=== PATIENT | female | born 1955 | race Caucasian/White ===

== ENCOUNTER 2024-01-11 08:15 | Outpatient (RCR) | payer MEDICARE, OTHER, SELFPAY ==
--- NOTE | 2023-11-18 18:04 | PT.OIE ---
Current Diagnoses Cervicalgia (11/16/23) Cystocele, unspecified (11/16/23) Pelvic muscle wasting (11/16/23) Other female genital prolapse (11/16/23) Past Surgical History (Last Reviewed 05/30/21 @ 16:29 by Faye Correa MD) H/O section Visit Care Team Role Provider Type ORIANA Oseguera Attending Provider Non-Staff Family Provider Primary Care Provider Referring Provider Specialty: Nursing Address: [facility] [address], [address], [place], [address] Email: Physical Therapy Initial Evaluation PT-OP-A Visit Information Start: 11/16/23 08:15 Freq: Status: Active Protocol: Document 11/16/23 09:03 [facility] (Rec: 11/16/23 09:17 [facility] [id number]) Out-Patient Physical Therapy Visit Information Visit Information Visit Type Initial Evaluation Visit Start Time 09:03 Visit Stop Time 09:45 Visit Number 1 Evaluation Information Evaluation Date 11/16/23 PT-OP-B Current Condition Start: 11/16/23 08:15 Freq: Status: Active Protocol: Document 11/16/23 09:03 [facility] (Rec: 11/18/23 17:56 [facility] [id number]) Current Condition History of Current Condition Onset Date March 2023 Current Complaints voiding difficulty and inability to fully empty the bladder History of Current Condition Mary reports that in March of 2023 she was under a lot of stress and she began noticing the it was taking longer for her to empty her bladder. Now she is presenting with hesitancy and inability to fully void. PT-OP-C Subjective Start: 11/16/23 08:15 Freq: Status: Active Protocol: Document 11/16/23 09:03 [facility] (Rec: 11/16/23 09:17 [facility] [id number]) OP-PT Subjective Patient Comments Patient Comments pt reports she feels it takes longer for her to empty her bladder, this started in March. She had a lot of stress going on. She has a history of bladder infections but she has been taking cranberry. She is also taking a estrogen cream and started taking that 4 years ago. She has occasional urgercency that she describes as the exception rather than the rule . SHe has bowel movement every day. 1 . PT-OP-I Pelvic Floor Start: 11/16/23 08:15 Freq: Status: Active Protocol: Document 11/16/23 09:03 [facility] (Rec: 11/18/23 17:56 [facility] [id number]) Pelvic Floor Assessment Urine Pelvic Floor Surgery No Urinary Symptoms Hesitancy,Incomplete Emptying Pelvic Clock Pelvic Clock 12-3 Atrophy Pelvic Clock 3-6 Atrophy Pelvic Clock 6-9 Atrophy Pelvic Clock 9-12 Atrophy Prolapse Cystocele Grade 2 Contraction Ability Voluntary Contraction Weak Voluntary Relaxation Weak Manual Muscle Testing Left 2 Manual Muscle Testing Right 2 Manual Muscle Testing Anterior 2 Manual Muscle Testing Posterior 3 Muscle Endurance (Seconds) 4 Comments Pelvic Floor Comments poor endurance of pelvic floor contractions PT-OP-Q Treatments Start: 11/16/23 08:15 Freq: Status: Active Protocol: Document 11/16/23 09:03 [facility] (Rec: 11/16/23 09:41 [facility] [id number]) Therapeutic Exercises Supine Exercises pelvic foor long holds Reps/Minutes 10 reps x 10 seconds Sidelying Exercises edwards shells Reps/Minutes 2-3 sets of 10 PT-OP-T Assessment and Plan Start: 11/16/23 08:15 Freq: Status: Active Protocol: Document 11/16/23 09:03 [facility] (Rec: 11/18/23 17:56 [facility] [id number]) Physical Therapy Assessment Rehab Potential Rehabilitation Potential Excellent Evaluation Complexity Number of Personal Factors/Comorbidities 0 Number of Body Systems Impaired 1-2 Clinical Presentation at Evaluation Stable Impairments Impairments Soft Tissue Mobility,Strength Other Impairments hesitancy to void and inablity to fully empty the bladder, cystocele Goals 3 Impairment cystocele with incomplete voiding and hesitancy to void Skilled Nursing Goal (LTG) With strengthening Mary reports a overall improvement in her voiding and she is able to feel as if she is completely voiding LTG Duration 8 weeks 2 Impairment Decreased pelvic floor strength Short Term Goal (STG) Mary is educated on a pelvic floor strengthening program STG Duration 4 weeks Quarry Supervisor Dimension Stone Goal (LTG) Mary is able to improve pelvic floor strength to 3/5 MMT or better for all guzman of the levator ani LTG Duration 8 weeks 1 Impairment Decreased pelvic floor endurance Short Term Goal (STG) Mary is able to sustain a pelvic floor contraction in Supine x 10 seconds STG Duration 4 weeks Quarry Supervisor Dimension Stone Goal (LTG) Mary is able to sustain a pelvic floor contraction in standing x 5 seconds LTG Duration 8 weeks Assessment Summary Assessment Mary is a 68 year old female who presents to PT today with chief complaints of difficulty emptying her bladder fully and hesitancy with voiding. She reports her symptoms began in March 2023 during a time that was stressfull for her. She seeks PT consult to help improve her ability to fully void. With exam today Mary is able to facilitate a contraction of all guzman of the levator ani however she is weak especially in the lateral guzman. She lacks endurance of the levator ani to sustain a pelvic floor contraction more than 4 seconds. Time was spent on education of pelvic floor anatomy and education of pelvic floor muscle training. Mary is a good candidate for pelvic floor PT to help support her bladder and improve her voiding ability Physical Therapy Plan Frequency and Duration Frequency of Treatment 1x/Week Duration of treatment (weeks) 8 Plan of Care Start Date 11/16/23 Plan of Care End Date 01/11/24 Therapeutic Interventions Therapeutic Interventions Home Exercise Program, Neuromuscular Re-education, Patient/Caregiver Education, Self-Care/Home Management, Therapeutic Exercises Modalities Biofeedback Next Visit Focus/Plan Next Note Type Treatment Note Next Visit Plan EMG biofeedback for pelvic floor endurance training
--- NOTE | 2023-11-18 18:04 | PT.OPPOC ---
Physical, Occupational & Speech Therapy At [facility] Current Diagnoses Cervicalgia (11/16/23) Cystocele, unspecified (11/16/23) Pelvic muscle wasting (11/16/23) Other female genital prolapse (11/16/23) Visit Care Team Role Provider Type ORIANA Oseguera Attending Provider Non-Staff Family Provider Primary Care Provider Referring Provider Specialty: Nursing Address: [facility] [address], [address], [place], [address] Email: Plan Of Care PT-OP-T Assessment and Plan Start: 11/16/23 08:15 Freq: Status: Active Protocol: Document 11/16/23 09:03 [facility] (Rec: 11/18/23 17:56 [facility] [id number]) Physical Therapy Assessment Rehab Potential Rehabilitation Potential Excellent Evaluation Complexity Number of Personal Factors/Comorbidities 0 Number of Body Systems Impaired 1-2 Clinical Presentation at Evaluation Stable Impairments Impairments Soft Tissue Mobility,Strength Other Impairments hesitancy to void and inablity to fully empty the bladder, cystocele Goals 3 Impairment cystocele with incomplete voiding and hesitancy to void Retirement Goal (LTG) With strengthening Mary reports a overall improvement in her voiding and she is able to feel as if she is completely voiding LTG Duration 8 weeks 2 Impairment Decreased pelvic floor strength Short Term Goal (STG) Mary is educated on a pelvic floor strengthening program STG Duration 4 weeks Sewing Trimmer Goal (LTG) Mary is able to improve pelvic floor strength to 3/5 MMT or better for all guzman of the levator ani LTG Duration 8 weeks 1 Impairment Decreased pelvic floor endurance Short Term Goal (STG) Mary is able to sustain a pelvic floor contraction in Supine x 10 seconds STG Duration 4 weeks Retirement Goal (LTG) aMry is able to sustain a pelvic floor contraction in standing x 5 seconds LTG Duration 8 weeks Assessment Summary Assessment Mary is a 68 year old female who presents to PT today with chief complaints of difficulty emptying her bladder fully and hesitancy with voiding. She reports her symptoms began in March 2023 during a time that was stressful for her. She seeks PT consult to help improve her ability to fully void. With exam today Mary is able to facilitate a contraction of all guzman of the levator ani however she is weak especially in the lateral guzman. She lacks endurance of the levator ani to sustain a pelvic floor contraction more than 4 seconds. Time was spent on education of pelvic floor anatomy and education of pelvic floor muscle training. Mary is a good candidate for pelvic floor PT to help support her bladder and improve her voiding ability Physical Therapy Plan Frequency and Duration Frequency of Treatment 1x/Week Duration of treatment (weeks) 8 Plan of Care Start Date 11/16/23 Plan of Care End Date 01/11/24 Therapeutic Interventions Therapeutic Interventions Home Exercise Program, Neuromuscular Re-education, Patient/Caregiver Education, Self-Care/Home Management, Therapeutic Exercises Modalities Biofeedback Next Visit Focus/Plan Next Note Type Treatment Note Next Visit Plan EMG biofeedback for pelvic floor endurance training Plan of Care Dates Plan of Care Start Date 11/16/23 Plan of Care End Date 01/11/24 Electronically Signed by: Selene Urrutia, PT 11/18/23 4255 If you are in agreement with this Plan of Care, please return a signed and dated copy. I have reviewed this Plan of Care and certify that the skilled therapy services above are required to meet the patient?s needs. Physician Signature Date Printed Name and Credentials Clinical Instructor Signature Printed Name and Credentials
--- NOTE | 2023-11-24 09:40 | PT.OTN ---
Current Diagnoses Cervicalgia (11/24/23) Cystocele, unspecified (11/24/23) Pelvic muscle wasting (11/24/23) Other female genital prolapse (11/24/23) Physical Therapy Treatment Note PT-OP-A Visit Information Start: 11/16/23 08:15 Freq: Status: Active Protocol: Document 11/24/23 09:02 [facility] (Rec: 11/24/23 09:29 [facility] [id number]) Out-Patient Physical Therapy Visit Information Visit Information Visit Type Treatment Note Visit Start Time 09:02 Visit Stop Time 09:35 Visit Number 2 PT-OP-B Current Condition Start: 11/16/23 08:15 Freq: Status: Active Protocol: Document 11/16/23 09:03 [facility] (Rec: 11/18/23 17:56 [facility] [id number]) Current Condition History of Current Condition Onset Date March 2023 Current Complaints voiding difficulty and inability to fully empty the bladder History of Current Condition Mary reports that in March of 2023 she was under a lot of stress and she began noticing the it was taking longer for her to empty her bladder. Now she is presenting with hesitancy and inability to fully void. PT-OP-C Subjective Start: 11/16/23 08:15 Freq: Status: Active Protocol: Document 11/24/23 09:02 [facility] (Rec: 11/24/23 09:36 [facility] [id number]) OP-PT Subjective Patient Comments Patient Comments pt reports she is working on her exercises at home Patient Reported Progress Same PT-OP-I Pelvic Floor Start: 11/16/23 08:15 Freq: Status: Active Protocol: Document 11/16/23 09:03 [facility] (Rec: 11/18/23 17:56 [facility] [id number]) Pelvic Floor Assessment Urine Pelvic Floor Surgery No Urinary Symptoms Hesitancy,Incomplete Emptying Pelvic Clock Pelvic Clock 12-3 Atrophy Pelvic Clock 3-6 Atrophy Pelvic Clock 6-9 Atrophy Pelvic Clock 9-12 Atrophy Prolapse Cystocele Grade 2 Contraction Ability Voluntary Contraction Weak Voluntary Relaxation Weak Manual Muscle Testing Left 2 Manual Muscle Testing Right 2 Manual Muscle Testing Anterior 2 Manual Muscle Testing Posterior 3 Muscle Endurance (Seconds) 4 Comments Pelvic Floor Comments poor endurance of pelvic floor contractions PT-OP-Q Treatments Start: 11/16/23 08:15 Freq: Status: Active Protocol: Document 11/24/23 09:02 [facility] (Rec: 11/24/23 09:29 [facility] [id number]) Therapeutic Exercises Supine Exercises pelvic floor quick flicks Reps/Minutes 2 sec on 2 sec off Comments 72 uv max pelvic foor long holds Supine Exercise Name with EMG biofeedback Reps/Minutes 10 reps x 10 seconds Comments 16.5 uv and max 49.8 uv Sidelying Exercises edwards shells Reps/Minutes 2-3 sets of 10 PT-OP-T Assessment and Plan Start: 11/16/23 08:15 Freq: Status: Active Protocol: Document 11/24/23 09:02 [facility] (Rec: 11/24/23 09:29 [facility] [id number]) Physical Therapy Assessment Goals 3 Impairment cystocele with incomplete voiding and hesitancy to void Destination Specialist Goal (LTG) With strengthening Mary reports a overall improvement in her voiding and she is able to feel as if she is completely voiding LTG Duration 8 weeks 2 Impairment Decreased pelvic floor strength Short Term Goal (STG) Mary is educated on a pelvic floor strengthening program STG Duration 4 weeks Destination Specialist Goal (LTG) Mary is able to improve pelvic floor strength to 3/5 MMT or better for all guzman of the levator ani LTG Duration 8 weeks 1 Impairment Decreased pelvic floor endurance Short Term Goal (STG) Mary is able to sustain a pelvic floor contraction in Supine x 10 seconds STG Duration 4 weeks [facility] Goal (LTG) Mary is able to sustain a pelvic floor contraction in standing x 5 seconds LTG Duration 8 weeks Assessment Summary Assessment EMG biofeedback was initiated today for Mary. She presents witha strong initial contraction of the pelvic floor but it is difficult for her to hold the contraction. Her chief complaint is a slow hesitant urinary stream and we discussed activation of the anterior and lateral guzman of the pelvic floor to help with this symptom Physical Therapy Plan Frequency and Duration Frequency of Treatment 1x/Week Duration of treatment (weeks) 8 Plan of Care Start Date 11/16/23 Plan of Care End Date 01/11/24 Therapeutic Interventions Therapeutic Interventions Home Exercise Program, Neuromuscular Re-education, Patient/Caregiver Education, Self-Care/Home Management, Therapeutic Exercises Modalities Biofeedback Next Visit Focus/Plan Next Note Type Treatment Note Next Visit Plan EMG biofeedback for pelvic floor endurance training
--- NOTE | 2023-11-30 08:57 | PT.OTN ---
Current Diagnoses Cervicalgia (11/30/23) Cystocele, unspecified (11/30/23) Pelvic muscle wasting (11/30/23) Other female genital prolapse (11/30/23) Physical Therapy Treatment Note PT-OP-A Visit Information Start: 11/16/23 08:15 Freq: Status: Active Protocol: Document 11/30/23 08:15 [facility] (Rec: 11/30/23 08:56 [facility] [id number]) Out-Patient Physical Therapy Visit Information Visit Information Visit Type Treatment Note Visit Start Time 08:16 Visit Stop Time 08:54 Visit Number 3 PT-OP-B Current Condition Start: 11/16/23 08:15 Freq: Status: Active Protocol: Document 11/16/23 09:03 [facility] (Rec: 11/18/23 17:56 [facility] [id number]) Current Condition History of Current Condition Onset Date March 2023 Current Complaints voiding difficulty and inability to fully empty the bladder History of Current Condition Mary reports that in March of 2023 she was under a lot of stress and she began noticing the it was taking longer for her to empty her bladder. Now she is presenting with hesitancy and inability to fully void. PT-OP-C Subjective Start: 11/16/23 08:15 Freq: Status: Active Protocol: Document 11/30/23 08:15 [facility] (Rec: 11/30/23 08:56 [facility] [id number]) OP-PT Subjective Patient Comments Patient Comments the kegels are going well, she is working is sidelying at home PT-OP-I Pelvic Floor Start: 11/16/23 08:15 Freq: Status: Active Protocol: Document 11/16/23 09:03 [facility] (Rec: 11/18/23 17:56 [facility] [id number]) Pelvic Floor Assessment Urine Pelvic Floor Surgery No Urinary Symptoms Hesitancy,Incomplete Emptying Pelvic Clock Pelvic Clock 12-3 Atrophy Pelvic Clock 3-6 Atrophy Pelvic Clock 6-9 Atrophy Pelvic Clock 9-12 Atrophy Prolapse Cystocele Grade 2 Contraction Ability Voluntary Contraction Weak Voluntary Relaxation Weak Manual Muscle Testing Left 2 Manual Muscle Testing Right 2 Manual Muscle Testing Anterior 2 Manual Muscle Testing Posterior 3 Muscle Endurance (Seconds) 4 Comments Pelvic Floor Comments poor endurance of pelvic floor contractions PT-OP-Q Treatments Start: 11/16/23 08:15 Freq: Status: Active Protocol: Document 11/30/23 08:15 [facility] (Rec: 11/30/23 08:56 [facility] [id number]) Therapeutic Exercises Supine Exercises supine ball squeeze with pelvic floor holds Reps/Minutes 10 reps templates for eccentric control and coordination Reps/Minutes x 5 min pelvic floor quick flicks Reps/Minutes 2 sec on 2 sec off Comments 23.6 uv max pelvic foor long holds Supine Exercise Name with EMG biofeedback Reps/Minutes 10 reps x 10 seconds Self-Care/Home Management Treatment Education Patient Education Home Exercise Program Caregiver Education pt given elevator exercises for HEP in supine and seated as well as supine ball squeeze with pelvic floor contraction PT-OP-T Assessment and Plan Start: 11/16/23 08:15 Freq: Status: Active Protocol: Document 11/30/23 08:15 [facility] (Rec: 11/30/23 08:56 [facility] [id number]) Physical Therapy Assessment Goals 3 Impairment cystocele with incomplete voiding and hesitancy to void Intermediate Goal (LTG) With strengthening Mary reports a overall improvement in her voiding and she is able to feel as if she is completely voiding LTG Duration 8 weeks 2 Impairment Decreased pelvic floor strength Short Term Goal (STG) Mary is educated on a pelvic floor strengthening program STG Duration 4 weeks Pre Press Proofer Goal (LTG) Mary is able to improve pelvic floor strength to 3/5 MMT or better for all guzman of the levator ani LTG Duration 8 weeks 1 Impairment Decreased pelvic floor endurance Short Term Goal (STG) Mary is able to sustain a pelvic floor contraction in Supine x 10 seconds STG Duration 4 weeks Pre Press Proofer Goal (LTG) Mary is able to sustain a pelvic floor contraction in standing x 5 seconds LTG Duration 8 weeks Assessment Summary Assessment Mary is doing great and showing good progress with pelvic floor endurance training Physical Therapy Plan Next Visit Focus/Plan Next Note Type Treatment Note Next Visit Plan recheck in with new exercises and see if Mary is feeling Ind with her HEP.
--- NOTE | 2024-01-11 17:20 | PT.OTN ---
Current Diagnoses Cervicalgia (01/11/24) Cystocele, unspecified (01/11/24) Pelvic muscle wasting (01/11/24) Other female genital prolapse (01/11/24) Physical Therapy Treatment Note PT-OP-A Visit Information Start: 11/16/23 08:15 Freq: Status: Active Protocol: Document 01/11/24 08:04 [facility] (Rec: 01/11/24 09:00 [facility] [id number]) Out-Patient Physical Therapy Visit Information Visit Information Visit Type Treatment Note Visit Start Time 08:15 Visit Stop Time 09:00 Visit Number 4 PT-OP-B Current Condition Start: 11/16/23 08:15 Freq: Status: Active Protocol: Document 11/16/23 09:03 [facility] (Rec: 11/18/23 17:56 [facility] [id number]) Current Condition History of Current Condition Onset Date March 2023 Current Complaints voiding difficulty and inability to fully empty the bladder History of Current Condition Mary reports that in March of 2023 she was under a lot of stress and she began noticing the it was taking longer for her to empty her bladder. Now she is presenting with hesitancy and inability to fully void. PT-OP-C Subjective Start: 11/16/23 08:15 Freq: Status: Active Protocol: Document 01/11/24 08:04 [facility] (Rec: 01/11/24 09:00 [facility] [id number]) OP-PT Subjective Patient Comments Patient Comments pt notes she feels things have improved and her stream is improved. PT-OP-I Pelvic Floor Start: 11/16/23 08:15 Freq: Status: Active Protocol: Document 11/16/23 09:03 [facility] (Rec: 11/18/23 17:56 [facility] [id number]) Pelvic Floor Assessment Urine Pelvic Floor Surgery No Urinary Symptoms Hesitancy,Incomplete Emptying Pelvic Clock Pelvic Clock 12-3 Atrophy Pelvic Clock 3-6 Atrophy Pelvic Clock 6-9 Atrophy Pelvic Clock 9-12 Atrophy Prolapse Cystocele Grade 2 Contraction Ability Voluntary Contraction Weak Voluntary Relaxation Weak Manual Muscle Testing Left 2 Manual Muscle Testing Right 2 Manual Muscle Testing Anterior 2 Manual Muscle Testing Posterior 3 Muscle Endurance (Seconds) 4 Comments Pelvic Floor Comments poor endurance of pelvic floor contractions PT-OP-Q Treatments Start: 11/16/23 08:15 Freq: Status: Active Protocol: Document 01/11/24 08:04 [facility] (Rec: 01/11/24 09:00 [facility] [id number]) Therapeutic Exercises Supine Exercises supine ball squeeze with pelvic floor holds Reps/Minutes 10 reps templates for eccentric control and coordination Reps/Minutes x 5 min pelvic floor quick flicks Reps/Minutes 2 sec on 2 sec off Comments 52 max pelvic foor long holds Supine Exercise Name with EMG biofeedback Reps/Minutes 10 reps x 10 seconds Comments 14.3 and max of 45 Sidelying Exercises edwards shells Reps/Minutes 2-3 sets of 10 Self-Care/Home Management Treatment Education Patient Education Home Exercise Program Caregiver Education pt was given sit-stand and pelvic floor engagement with lifting PT-OP-T Assessment and Plan Start: 11/16/23 08:15 Freq: Status: Active Protocol: Document 01/11/24 08:04 [facility] (Rec: 01/11/24 09:00 [facility] [id number]) Physical Therapy Assessment Goals 3 Impairment cystocele with incomplete voiding and hesitancy to void Detention Goal (LTG) With strengthening Mary reports a overall improvement in her voiding and she is able to feel as if she is completely voiding goal met LTG Duration 8 weeks 2 Impairment Decreased pelvic floor strength Short Term Goal (STG) Mary is educated on a pelvic floor strengthening program goal met STG Duration 4 weeks Detention Goal (LTG) Mary is able to improve pelvic floor strength to 3/5 MMT or better for all guzman of the levator ani excellent progress LTG Duration 8 weeks 1 Impairment Decreased pelvic floor endurance Short Term Goal (STG) Mary is able to sustain a pelvic floor contraction in Supine x 10 seconds goal met STG Duration 4 weeks Receptionist/Telephone Operator Goal (LTG) Mary is able to sustain a pelvic floor contraction in standing x 5 seconds goal met LTG Duration 8 weeks Assessment Summary Assessment Mary has made great overall progress and has met most of her goals. She will be discharged to [facility] at this time Physical Therapy Plan Discharge Physical Therapy Discharge Reasons Goals Met
== END 2024-02-22 09:31 | disposition home or self-care (01) ==
LOC: PHYS 08:15
PROVIDERS: Family Provider Nurse Practitioner; PCP Nurse Practitioner; Referring Provider Nurse Practitioner; Visit Provider Nurse Practitioner
DX: N81.89 Other female genital prolapse (principal); N81.10 Cystocele, unspecified; M54.2 Cervicalgia; N81.84 Pelvic muscle wasting
CPT/HCPCS: 97110; 97161; 97535